=== PATIENT | male | born 1985 | race Hispanic/Latino ===

== ENCOUNTER 2021-10-13 18:15 | Emergency (ER) | payer SELFPAY ==
[2021-10-13] MEDS ORDERED: Sodium Chloride 0.9% 1000 ML 1,000 ML IV STA (18:37)
[2021-10-13 18:56] LABS: Absolute Neutrophil Ct (ANC) 4.89 (1.4-6.9); Basophil (Absolute #) 0.08 (0-0.4); Eosinophil % 1.3 % (0.00-5.0); Hematocrit 45.6 % (42-50); Hemoglobin 15.5 gm/dl (12.5-18.0); Lymphocyte (Absolute #) 1.85 (1.0-4.6); Lymphocytes % 24.5 % (24.0-44.0); Mean Cell Volume 91.2 fl (78-100); Mean Platelet Volume 9.3 fl (7.5-11.0); Monocyte (Absolute #) 0.63 (0.0-1.3); Monocytes % 8.3 % (0.0-12.0); Neutrophil % 64.8 % (36.0-66.0); Platelet Count 365 K/mm3 (150-450); Red Cell Distribution Width 13.3 % (11.5-14.0); White Blood Count 7.6 K/mm3 (4.0-10.5)
[2021-10-13 19:03] LABS: Appearance CLEAR (CLEAR); Bilirubin NEGATIVE (NEGATIVE); Dipstick done @ ? MAIN LAB; Glucose NEGATIVE (NEGATIVE); Ketones NEGATIVE (NEGATIVE); Mucus SLIGHT /HPF (NEGATIVE); Nitrite NEGATIVE (NEGATIVE); Protein,Urine Dip NEGATIVE (Negative); RBC NEGATIVE Ery/ul (0-5); Urobilinogen 0.2 mg/dL (0-1); WBC 0-2 /HPF (0-5)
[2021-10-13 19:04] LABS: Bacteria NONE SEEN /HPF (NEGATIVE); Urine Cultured Indicated? NO
[2021-10-13 19:11] LABS: INR 1.14 (0.8-3.0); PROTIME 13.4 SECONDS (9.4-12.5)
[2021-10-13 19:16] LABS: Amphetamine,Urine POSITIVE (NEGATIVE); Barbiturate,Urine NEGATIVE (NEGATIVE); Benzodiazepine,Urine NEGATIVE (NEGATIVE); Cocaine,Urine NEGATIVE (NEGATIVE); Methadone,Urine NEGATIVE (NEGATIVE); Opiate,Urine NEGATIVE (NEGATIVE); PCP,Urine NEGATIVE (NEGATIVE); THC,Urine NEGATIVE (NEGATIVE)
[2021-10-13 19:29] LABS: D-DIMER QUANTITATIVE < 215 ng/mL (215-500)
[2021-10-13 19:31] LABS: ACETAMINOPHEN < 10 ug/ml (10-30); ALBUMIN 4.6 g/dL (3.5-5.0); ALKALINE PHOSPHATASE 68 U/L (38-126); AMYLASE 73 U/L (30-110); ANION GAP 13.9 MEQ/L (5-15); BLOOD UREA NITROGEN 7 mg/dL (9-20); CHLORIDE 100 mmol/L (98-107); CK-Creatinine Phosphokinase 149 U/L (55-170); Calcium 9.7 mg/dL (8.4-10.2); Carbon Dioxide 28 mmol/L (22-30); Creatinine 1 0.76 mg/dL (0.66-1.25); EST GLOMERULAR FILTRATION RATE > 60.0 ML/MIN; ETHYL ALCOHOL < 10 mg/dL (0-10); Glucose 85 mg/dL (74-106); LIPASE 46 U/L (23-300); MAGNESIUM 1.8 mg/dL (1.6-2.3); Potassium 3.7 mmol/L (3.5-5.1); SALICYLATE < 1.0 mg/dL (2-20); SGOT/AST 28 U/L (17-59); SGPT/ALT 22 U/L (0-50); SODIUM 138 mmol/L (137-145); Total Protein 7.8 g/dL (6.3-8.2)
[2021-10-13 19:47] LABS: Erythrocyte Sedimentation Rate 3 mm/hr (0-15)
[2021-10-13 20:31] LABS: INFLUENZA A NEGATIVE (NEGATIVE); INFLUENZA B NEGATIVE (NEGATIVE); RESPIRATORY SYNCTIAL VIRUS NEGATIVE (Negative); SARS-CoV-2 Xpert Express NEGATIVE (NEGATIVE)
--- NOTE | 2021-10-13 21:09 | ERPHSYRPT ---
- History of Present Illness Time Seen by Provider: 10/13/21 18:30 Source: patient, EMS, director employee safety and health Exam Limitations: language barrier Patient Subjective Stated Complaint: Pt states "These people put hexes on me and make me sit in the middle of a [place] and I take amphetamines to calm down. I see white spots in the black parts of my eyes. I see blue flashes in my eyes when I sleep." Triage Nursing Assessment: Pt presented alert and oriented X 3, skin pwd Pt ambulates with an upright steady gait, able to speak in clear full sentences pt in no apparent respiratory distress. 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 Physician History: Prydeinig-speaking 35-year-old male who has paranoia and schizophrenia probably. He has been seen frequently by the police he is call them numerous times saying that the neighbors and others including which is have put x-rays on him. He has a history of heavy substance abuse and alcoholism but he stopped drinking and now uses primarily amphetamines because they make him feel better. He also complains of palpitations and abdominal discomfort. He absolutely refuses to consider psychological causes of his symptoms. He refuses any evaluation psychiatrically. He is not suicidal he has not been homicidal. He is alert and oriented. Communication is through an director employee safety and health. Timing/Duration: other (Apparently from the EMS information he has been in this paranoia and psychotic state for a long time.) Severity: moderate Modifying Factors: Improves With: nothing Associated Symptoms: abdominal pain, other (Palpitations) Allergies/Adverse Reactions: No Known Drug Allergies Allergy (Verified 10/13/21 18:38) Home Medications: No Reportable Medications [No Reported Medications] 10/13/21 [History] Hx Tetanus, Diphtheria Vaccination/Date Given: No Hx Influenza Vaccination/Date Given: No Hx Pneumococcal Vaccination/Date Given: No Immunizations Up to Date: No Travel Risk - International Travel Have you traveled outside of the country in past 3 weeks: No - Coronavirus Screening Are you exhibiting any of the following symptoms?: No Close contact with a COVID-19 positive Pt in past 14-21 Days: No - Vaccine Status Have you recieved a Covid-19 vaccination: No - Review of Systems Constitutional: No Fever, No Chills Eyes: No Symptoms Ears, Nose, & Throat: No Symptoms Respiratory: No Cough, No Dyspnea Cardiac: Palpitations, No Chest Pain, No Edema, No Syncope Abdominal/Gastrointestinal: Abdominal Pain, No Nausea, No Vomiting, No Diarrhea Genitourinary Symptoms: No Dysuria Musculoskeletal: No Back Pain, No Neck Pain Skin: No Rash Neurological: No Dizziness, No Focal Weakness, No Sensory Changes Psychological: No Symptoms, Hallucinations, Other (Paranoid), No Suicidal Ideations, No Homicidal Ideations Endocrine: No Symptoms Hematologic/Lymphatic: No Symptoms Immunological/Allergic: No Symptoms All Other Systems: Reviewed and Negative - Past Medical History Pertinent Past Medical History: No - Past Surgical History Past Surgical History: No - Social History Smoking Status: Never smoker Exposure to second hand smoke: No Drug Use: methamphetamines Patient Lives Alone: No - Nursing Vital Signs Nursing Vital Signs: Initial Vital Signs Temperature 99.0 F 10/13/21 18:24 Pulse Rate 83 10/13/21 18:24 Respiratory Rate 20 10/13/21 18:24 Blood Pressure 158/110 10/13/21 18:24 O2 Sat by Pulse Oximetry 98 10/13/21 18:24 Pain Scale Pain Intensity 0 - Physical Exam General Appearance: no apparent distress, alert Eye Exam: PERRL/EOMI, eyes nml inspection Ears, Nose, Throat Exam: normal ENT inspection, TMs normal, pharynx normal, moist mucous membranes Neck Exam: normal inspection, non-tender, supple, full range of motion Respiratory Exam: normal breath sounds, lungs clear, No respiratory distress Cardiovascular Exam: regular rate/rhythm, normal heart sounds, normal peripheral pulses Gastrointestinal/Abdomen Exam: soft, normal bowel sounds, No tenderness, No mass Back Exam: normal inspection, normal range of motion, No CVA tenderness, No vertebral tenderness Extremity Exam: normal inspection, normal range of motion, pelvis stable Neurologic Exam: alert, oriented x 3, cooperative, normal mood/affect, nml cerebellar function, nml station & gait, sensation nml, No motor deficits Skin Exam: normal color, warm, dry, No rash Lymphatic Exam: No adenopathy SpO2: 100 - Course Nursing assessment & vital signs reviewed: Yes - Radiology Exams Abdomen X-ray Interpretation: Interpreted by me, Negative Ordered Tests: Active Orders 24 hr Category Date Time Status Clean Catch Urine Specimen STAT Care 10/13/21 18:36 Active OBSTR/ACUTE ABDOMEN SERIES Routine Exams 10/13/21 20:51 Taken ACETAMINOPHEN Stat Lab 10/13/21 18:52 Completed AMYLASE Stat Lab 10/13/21 18:52 Completed CBC W DIFF Stat Lab 10/13/21 18:52 Completed CK-Creatinine Phosphokinase Stat Lab 10/13/21 18:52 Completed CMP Stat Lab 10/13/21 18:52 Completed D-DIMER QUANTITATIVE Stat Lab 10/13/21 18:52 Completed ETHYL ALCOHOL Stat Lab 10/13/21 18:52 Completed Erythrocyte Sedimentation Rate Stat Lab 10/13/21 18:52 Completed LIPASE Stat Lab 10/13/21 18:52 Completed Lactic Acid Stat Lab 10/13/21 18:49 Completed MAGNESIUM Stat Lab 10/13/21 18:52 Completed PROTIME WITH INR Stat Lab 10/13/21 18:52 Completed PTT Stat Lab 10/13/21 18:52 Completed SALICYLATE Stat Lab 10/13/21 18:52 Completed TROPONIN Q3H Lab 10/13/21 18:52 Completed TROPONIN Q3H Lab 10/13/21 21:45 Ordered TROPONIN Q3H Lab 10/14/21 00:45 Ordered TROPONIN Q3H Lab 10/14/21 03:45 Ordered TROPONIN Q3H Lab 10/14/21 06:45 Ordered Urine Triage Profile Stat Lab 10/13/21 18:50 Completed Medication Summary Discontinued Medications Generic Name Dose Route Start Last Admin Trade Name Freq PRN Reason Stop Dose Admin Sodium Chloride 1,000 mls @ 999 mls/hr 10/13/21 18:37 10/13/21 18:49 Sodium Chloride 0.9% 1000 Ml IV 10/13/21 19:37 Not Given .Q1H1M STA Lab/Rad Data: Laboratory Result Diagrams 10/13/21 18:52 10/13/21 18:52 Laboratory Results 10/13/21 10/13/21 10/13/21 Range/Units 19:53 18:52 18:52 WBC (4.0-10.5) K/mm3 RBC (4.1-5.6) M/mm3 Hgb (12.5-18.0) gm/dl Hct (42-50) % MCV (78-100) fl MCH (26-32) pg MCHC (32-36) g/dl RDW (11.5-14.0) % Plt Count (150-450) K/mm3 MPV (7.5-11.0) fl Gran % (36.0-66.0) % Eos # (Auto) (0-0.5) Absolute Lymphs (auto) (1.0-4.6) Absolute Monos (auto) (0.0-1.3) Lymphocytes % (24.0-44.0) % Monocytes % (0.0-12.0) % Eosinophils % (0.00-5.0) % Basophils % (0.0-0.4) % Absolute Granulocytes (1.4-6.9) Basophils # (0-0.4) ESR (0-15) mm/hr PT 13.4 H (9.4-12.5) SECONDS INR 1.14 (0.8-3.0) APTT 40.0 H (25.1-36.5) SECONDS D-Dimer < 215 L (215-500) ng/mL Sodium (137-145) mmol/L Potassium (3.5-5.1) mmol/L Chloride (98-107) mmol/L Carbon Dioxide (22-30) mmol/L Anion Gap (5-15) MEQ/L BUN (9-20) mg/dL Creatinine (0.66-1.25) mg/dL Estimated GFR ML/MIN Glucose (74-106) mg/dL Lactic Acid (0.4-2.0) Calcium (8.4-10.2) mg/dL Magnesium (1.6-2.3) mg/dL Total Bilirubin (0.2-1.3) mg/dL AST (17-59) U/L ALT (0-50) U/L Alkaline Phosphatase (38-126) U/L Creatine Kinase (55-170) U/L Troponin I < 0.012 (0.000-0.034) ng/mL Serum Total Protein (6.3-8.2) g/dL Albumin (3.5-5.0) g/dL Amylase (30-110) U/L Lipase (23-300) U/L Urinalys Dipstick Clnc Urine Color (YELLOW) Urine Appearance (CLEAR) Urine pH (5-6) Ur Specific [place] (1.005-1.025) POC Urine Protein Conf (Negative) Urine Ketones (NEGATIVE) Urine Nitrite (NEGATIVE) Urine Bilirubin (NEGATIVE) Urine Urobilinogen (0-1) mg/dL Urine Leukocytes (NEGATIVE) Urine WBC (Auto) (0-5) /HPF Urine RBC (Auto) (0-2) /HPF U Epithel Cells (Auto) (FEW) /HPF Urine Bacteria (Auto) (NEGATIVE) /HPF Urine RBC (0-5) Giuseppe/ul Urine Mucus (Auto) (NEGATIVE) /HPF Ur Culture Indicated? Urine Glucose (NEGATIVE) mg/dL Salicylates (2-20) mg/dL Urine Opiates Level (NEGATIVE) Ur Methadone (NEGATIVE) Acetaminophen (10-30) ug/ml Urine Barbiturates (NEGATIVE) Ur Phencyclidine (PCP) (NEGATIVE) Urine Amphetamine (NEGATIVE) U Benzodiazepine Level (NEGATIVE) Urine Cocaine (NEGATIVE) Urine Marijuana (THC) (NEGATIVE) Ethyl Alcohol (0-10) mg/dL Influenza Type A Ag NEGATIVE (NEGATIVE) Influenza Type B Ag NEGATIVE (NEGATIVE) RSV (PCR) NEGATIVE (Negative) SARS-CoV-2 (PCR) NEGATIVE (NEGATIVE) 10/13/21 10/13/21 10/13/21 Range/Units 18:52 18:52 18:50 WBC 7.6 (4.0-10.5) K/mm3 RBC 5.00 (4.1-5.6) M/mm3 Hgb 15.5 (12.5-18.0) gm/dl Hct 45.6 (42-50) % MCV 91.2 (78-100) fl MCH 31.0 (26-32) pg MCHC 34.0 (32-36) g/dl RDW 13.3 (11.5-14.0) % Plt Count 365 (150-450) K/mm3 MPV 9.3 (7.5-11.0) fl Gran % 64.8 (36.0-66.0) % Eos # (Auto) 0.10 (0-0.5) Absolute Lymphs (auto) 1.85 (1.0-4.6) Absolute Monos (auto) 0.63 (0.0-1.3) Lymphocytes % 24.5 (24.0-44.0) % Monocytes % 8.3 (0.0-12.0) % Eosinophils % 1.3 (0.00-5.0) % Basophils % 1.1 (0.0-0.4) % Absolute Granulocytes 4.89 (1.4-6.9) Basophils # 0.08 (0-0.4) ESR 3 (0-15) mm/hr PT (9.4-12.5) SECONDS INR (0.8-3.0) APTT (25.1-36.5) SECONDS D-Dimer (215-500) ng/mL Sodium 138 (137-145) mmol/L Potassium 3.7 (3.5-5.1) mmol/L Chloride 100 (98-107) mmol/L Carbon Dioxide 28 (22-30) mmol/L Anion Gap 13.9 (5-15) MEQ/L BUN 7 L (9-20) mg/dL Creatinine 0.76 (0.66-1.25) mg/dL Estimated GFR > 60.0 ML/MIN Glucose 85 (74-106) mg/dL Lactic Acid (0.4-2.0) Calcium 9.7 (8.4-10.2) mg/dL Magnesium 1.8 (1.6-2.3) mg/dL Total Bilirubin 1.10 (0.2-1.3) mg/dL AST 28 (17-59) U/L ALT 22 (0-50) U/L Alkaline Phosphatase 68 (38-126) U/L Creatine Kinase 149 (55-170) U/L Troponin I (0.000-0.034) ng/mL Serum Total Protein 7.8 (6.3-8.2) g/dL Albumin 4.6 (3.5-5.0) g/dL Amylase 73 (30-110) U/L Lipase 46 (23-300) U/L Urinalys Dipstick Clnc Urine Color (YELLOW) Urine Appearance (CLEAR) Urine pH (5-6) Ur Specific [place] (1.005-1.025) POC Urine Protein Conf (Negative) Urine Ketones (NEGATIVE) Urine Nitrite (NEGATIVE) Urine Bilirubin (NEGATIVE) Urine Urobilinogen (0-1) mg/dL Urine Leukocytes (NEGATIVE) Urine WBC (Auto) (0-5) /HPF Urine RBC (Auto) (0-2) /HPF U Epithel Cells (Auto) (FEW) /HPF Urine Bacteria (Auto) (NEGATIVE) /HPF Urine RBC (0-5) Giuseppe/ul Urine Mucus (Auto) (NEGATIVE) /HPF Ur Culture Indicated? Urine Glucose (NEGATIVE) mg/dL Salicylates < 1.0 L (2-20) mg/dL Urine Opiates Level NEGATIVE (NEGATIVE) Ur Methadone NEGATIVE (NEGATIVE) Acetaminophen < 10 L (10-30) ug/ml Urine Barbiturates NEGATIVE (NEGATIVE) Ur Phencyclidine (PCP) NEGATIVE (NEGATIVE) Urine Amphetamine POSITIVE (NEGATIVE) U Benzodiazepine Level NEGATIVE (NEGATIVE) Urine Cocaine NEGATIVE (NEGATIVE) Urine Marijuana (THC) NEGATIVE (NEGATIVE) Ethyl Alcohol < 10 (0-10) mg/dL Influenza Type A Ag (NEGATIVE) Influenza Type B Ag (NEGATIVE) RSV (PCR) (Negative) SARS-CoV-2 (PCR) (NEGATIVE) 10/13/21 10/13/21 Range/Units 18:50 18:49 WBC (4.0-10.5) K/mm3 RBC (4.1-5.6) M/mm3 Hgb (12.5-18.0) gm/dl Hct (42-50) % MCV (78-100) fl MCH (26-32) pg MCHC (32-36) g/dl RDW (11.5-14.0) % Plt Count (150-450) K/mm3 MPV (7.5-11.0) fl Gran % (36.0-66.0) % Eos # (Auto) (0-0.5) Absolute Lymphs (auto) (1.0-4.6) Absolute Monos (auto) (0.0-1.3) Lymphocytes % (24.0-44.0) % Monocytes % (0.0-12.0) % Eosinophils % (0.00-5.0) % Basophils % (0.0-0.4) % Absolute Granulocytes (1.4-6.9) Basophils # (0-0.4) ESR (0-15) mm/hr PT (9.4-12.5) SECONDS INR (0.8-3.0) APTT (25.1-36.5) SECONDS D-Dimer (215-500) ng/mL Sodium (137-145) mmol/L Potassium (3.5-5.1) mmol/L Chloride (98-107) mmol/L Carbon Dioxide (22-30) mmol/L Anion Gap (5-15) MEQ/L BUN (9-20) mg/dL Creatinine (0.66-1.25) mg/dL Estimated GFR ML/MIN Glucose (74-106) mg/dL Lactic Acid 0.7 (0.4-2.0) Calcium (8.4-10.2) mg/dL Magnesium (1.6-2.3) mg/dL Total Bilirubin (0.2-1.3) mg/dL AST (17-59) U/L ALT (0-50) U/L Alkaline Phosphatase (38-126) U/L Creatine Kinase (55-170) U/L Troponin I (0.000-0.034) ng/mL Serum Total Protein (6.3-8.2) g/dL Albumin (3.5-5.0) g/dL Amylase (30-110) U/L Lipase (23-300) U/L Urinalys Dipstick Clnc MAIN LAB Urine Color YELLOW (YELLOW) Urine Appearance CLEAR (CLEAR) Urine pH 8.0 (5-6) Ur Specific [place] 1.020 (1.005-1.025) POC Urine Protein Conf NEGATIVE (Negative) Urine Ketones NEGATIVE (NEGATIVE) Urine Nitrite NEGATIVE (NEGATIVE) Urine Bilirubin NEGATIVE (NEGATIVE) Urine Urobilinogen 0.2 (0-1) mg/dL Urine Leukocytes NEGATIVE (NEGATIVE) Urine WBC (Auto) 0-2 (0-5) /HPF Urine RBC (Auto) NONE (0-2) /HPF U Epithel Cells (Auto) NONE (FEW) /HPF Urine Bacteria (Auto) NONE SEEN (NEGATIVE) /HPF Urine RBC NEGATIVE (0-5) Giuseppe/ul Urine Mucus (Auto) SLIGHT (NEGATIVE) /HPF Ur Culture Indicated? NO Urine Glucose NEGATIVE (NEGATIVE) mg/dL Salicylates (2-20) mg/dL Urine Opiates Level (NEGATIVE) Ur Methadone (NEGATIVE) Acetaminophen (10-30) ug/ml Urine Barbiturates (NEGATIVE) Ur Phencyclidine (PCP) (NEGATIVE) Urine Amphetamine (NEGATIVE) U Benzodiazepine Level (NEGATIVE) Urine Cocaine (NEGATIVE) Urine Marijuana (THC) (NEGATIVE) Ethyl Alcohol (0-10) mg/dL Influenza Type A Ag (NEGATIVE) Influenza Type B Ag (NEGATIVE) RSV (PCR) (Negative) SARS-CoV-2 (PCR) (NEGATIVE) - Progress Progress: unchanged Progress Note: 10/13/21 21:43 Patient was offered a chance to have psych evaluation he refused and we will release him because he is oriented not suicidal and not homicidal. - Departure Departure Disposition: Home Clinical Impression: Amphetamine use Condition: Stable Critical Care Time: No Referrals: DOCTOR,NO FAMILY [Primary Care Provider] - Follow up/PCP as directed Instructions: Polysubstance Abuse (DC)
[2021-10-13 22:03] VITALS: BP 123/97; PULSE 91; O2SAT 99
--- NOTE | 2021-10-15 12:14 | XRAY ---
Indication: Chest and abdomen pain. Comparison: None 2 view abdomen demonstrates nonspecific nonobstructed bowel gas pattern. Solid organs and osseous structures unremarkable. Single frontal chest demonstrates normal heart, lungs, and bony thorax with a few incidental left lung calcified granulomas. Impression: Nonacute nonobstructed abdomen. Nonacute one view chest with incidental old granulomatous disease.
== END 2021-10-13 22:05 | disposition home or self-care (01) ==
LOC: ED 18:15
DX: F15.950 Other stimulant use, unspecified with stimulant-induced psychotic disorder with delusions (principal); R10.9 Unspecified abdominal pain; R00.2 Palpitations
CPT/HCPCS: 0241U; 36415; 74022; 80053; 80307; 81015; 82150; 82550; 83605; 83690; 83735; 84484; 85025; 85379; 85610; 85652; 85730; 99284; G0480